=== PATIENT | female | born 1995 | race Caucasian/White ===

== ENCOUNTER 2016-11-09 17:41 | Emergency (ER) | payer OTHER ==
[2016-11-09] MEDS ORDERED: LIDOCAINE 1% INJ-PF (10 MG/ML) 30 ML SDV INJ ONE (18:30)
--- NOTE | 2016-11-09 18:34 | ER Document Report ---
ED Wound - General Chief Complaint: Laceration Stated Complaint: LEFT MIDDLE FINGER INJURY Mode of Arrival: Ambulatory Information source: Patient TRAVEL OUTSIDE OF THE [place] IN LAST 30 DAYS: No - HPI Patient complains to provider of: Laceration Occurred: Just prior to arrival Notes: Patient was at work when she was chopping cilantro and accidentally lacerated the tip of her left middle finger. Bleeding is controlled with pressure. She had her last tetanus within the last 5 years. She denies any numbness, tingling , weakness. She is on no blood thinners. She denies any fevers. No redness. No drainage. She denies any other injuries or complaints at this time. - Related Data Allergies/Adverse Reactions: No Known Allergies Allergy (Verified 11/09/16 17:58) Past Medical History - Social History Smoking Status: Unknown if Ever Smoked Family History: Reviewed & Not Pertinent Patient has suicidal ideation: No Patient has homicidal ideation: No Renal/ Medical History: Denies: Hx Peritoneal Dialysis Review of Systems - Review of Systems -: Yes All other systems reviewed and negative Physical Exam - Vital signs Vitals: Temp Pulse Resp BP Pulse Ox 98.7 F 74 16 131/80 H 99 11/09/16 17:59 11/09/16 17:59 11/09/16 17:59 11/09/16 17:59 11/09/16 17:59 - Notes Notes: GENERAL: alert, cooperative, nontoxic, no distress. HEAD: normocephalic, atraumatic EYES: conjunctiva pink without discharge, no external redness or swelling. EARS: no external swelling, no external redness NOSE: atraumatic, no external swelling MOUTH/THROAT: mucous membranes moist and pink NECK: soft, supple, full range of motion, no meningismus. CHEST: no distress, lungs clear and equal throughout. No wheezing, rales, rhonchi. CARDIAC: regular rate and rhythm, no murmur, normal capillary refill, normal pulses. BACK: full range of motion, no CVA tenderness. EXTREMITIES: full range of motion of all extremities. No redness, no swelling. Patient has a 1 cm flap-type laceration to the left middle fingertip that involves a very small portion of the nail. Bleeding is controlled. I will Refill and sensation distally. No foreign body. No tendon laceration. NEURO: alert and oriented 3, no focal deficits, full range of motion of all extremities. PYSCH: appropriate mood, affect. Patient is cooperative. SKIN: pink, warm, dry, no rash. Course - Re-evaluation Re-evalutation: 11/09/16 19:14 Patient has a laceration to the left middle fingertip. It was a near complete avulsion laceration that went through the nail. Normal sensation and cap refill. The laceration was repaired. The tiny bit of nail that was left within the skin was trimmed off. Her tetanus is up-to-date. The patient will be discharged home with instructions to follow-up in 10-12 days for suture removal, sooner for increased pain, fever, redness, swelling, any further concerns. The patient is noted to have elevated blood pressure during today's emergency department visit. The patient was informed of this finding. The patient was instructed that this may be related to pre-hypertension and requires further evaluation with a primary care provider. The patient has no hypertensive symptoms at this time. The patient's emergency department workup and current diagnosis were explained to the patient and or family. Follow-up instructions were provided. Medications if prescribed were discussed. Instructions for when to return to the emergency department including specific worrisome symptoms were discussed with the patient and/or family. - Vital Signs Vital signs: Temp Pulse Resp BP Pulse Ox 98.7 F 74 16 131/80 H 99 11/09/16 17:59 11/09/16 17:59 11/09/16 17:59 11/09/16 17:59 11/09/16 17:59 Procedures - Laceration/Wound Repair left middle fingertip Wound length (cm): 1 Wound's Depth, Shape: Superficial, Flap, Nail-avulsed Laceration pre-procedure: Sterile PPE donned, Chloraprep applied, Sterile drapes applied Anesthetic type: 1% Lidocaine Volume Anesthetic (mLs): 1 Wound explored: Clean, No foreign body removed Wound Debrided: tiny bit of nail attached to skin was removed. Wound Repaired With: Sutures Suture Size/Type: 5:0, Nylon Number of Sutures: 5 Layer Closure?: No Post-procedure wound care: Sterile dressing applied Post-procedure NV exam normal: Yes Complications: No Discharge - Discharge Clinical Impression: Laceration of left middle finger Condition: Stable Disposition: HOME, SELF-CARE Instructions: Laceration Care ([facility]) Additional Instructions: Clean wound twice a day with soap and water. Follow-up in 10-12 days for suture removal. Follow-up sooner for increased pain, fever, redness, drainage, any further concerns. Your blood pressure was elevated during today's visit. Have this rechecked with your doctor. Forms: Elevated Blood Pressure, Return to Work
[2016-11-09 19:36] VITALS: BP 128/79
== END 2016-11-09 19:34 | disposition home or self-care (01) ==
LOC: ER 17:41
PROC: 0HQGXZZ Repair Left Hand Skin, External Approach (ICD-10-PCS; principal; 2016-11-09)
DX: S61.213A Laceration without foreign body of left middle finger without damage to nail, initial encounter (principal); W26.0XXA Contact with knife, initial encounter
CPT/HCPCS: 99282; 12001; J3490